=== PATIENT | female | born 1995 | race Hispanic/Latino ===

== ENCOUNTER 2016-11-26 11:02 | Emergency (ER) | payer OTHER ==
--- NOTE | 2016-11-26 12:03 | REP ---
OBSTETRIC SONOGRAPHY: HISTORY: Abdominal pain. FINDINGS: Transabdominal scanning demonstrates a viable single intrauterine gestation in a variable lie. motion is observed and heart rate is recorded at 149 beats per minute. An anterior placenta is seen without evidence of abruption or previa. Amniotic fluid is subjectively normal. Closed cervical length is 3.1 cm measured transabdominally. No extrauterine abnormality is observed. It is too early for anatomic survey. No gross anomaly is seen. Biometry Chart: BPD 2.5 cm = 14 weeks 1 day HC 9.5 cm = 14 weeks 3 days AC 7.5 cm = 14 weeks 0 days FL 0.9 cm = 12 weeks 6 days HC/AC ratio normal 1.28. Cephalic index normal 0.70. Estimated weight 77 grams, 0 pounds 2 ounces, 40th percentile for 13 weeks 3 days. IMPRESSION: Viable single intrauterine gestation at 13 weeks 6 days by today's sonographic criteria. ROCIO by today's sonography May 28, 2017. No complication is identified. Signed by Crow Cullen MD 11/26/2016 02:58 P
--- NOTE | 2016-11-26 12:34 | EDDOCDS ---
Physician Documentation [facility] Name: Sera Altman Age: 20 yrs Sex: Female : 1995 Arrival Date: 11/26/2016 Time: 11:02 Bed PR Private MD: Aramis [facility] [place] Disposition: 11/26/16 12:14 Discharged to Home/Self Care. Impression: Abdominal and pelvic pain, Other specified related conditions, first trimester. - Condition is Stable. - Discharge Instructions: Abdominal Pain During . - Medication Reconciliation form. - Follow up: Arpan Call, OB; When: Call to arrange an appointment; Reason: Recheck today's complaints, Continuance of care. - Problem is an ongoing problem. - Symptoms are unchanged. Historical: - Allergies: Amoxicillin (Hives); peanuts (Hives); - Home Meds: 1. geneva-sequel daily (Last dose: 11/26/2016 07:00) 2. Vitamin Oral tab 1 tab once daily (Last dose: 11/26/2016 07:00) - PMHx: low iron; - Social history: Smoking status: Patient states was never smoker of tobacco. No barriers to communication noted, The patient speaks fluent Vietnamese. - Family history: Not pertinent. - : The pt / caregiver states he / she is not on anticoagulants. Home medication list is obtained from the patient. - Exposure Risk Screening:: None identified. SOLUTIONS MARKET CONSULTANT: 11/26 11:13 1, Full Term 0, Premature 0, 0, Living 0, LMP 08/24/2016, kpj Verified, EDC 05/31/2017, Gestational age from LMP: 13 weeks 3 days Vital Signs: 11:04 BP 159 / 67; Pulse 101; Resp 18; Temp 98.9; Pulse Ox 99% ; Weight 52.16 kg / 114.99 elp lbs; Height 5 ft. 0 in. (152.40 cm); Pain 0/10; 12:28 BP 112 / 64; Pulse 86; Resp 16; Temp 97.0(O); Pulse Ox 100% on R/A; Pain 2/10; kpj 11:04 Body Mass Index 22.46 (52.16 kg, 152.40 cm) elp MDM: 11:20 UA Ordered. EDMS 11:20 US 1st trimester Ordered. EDMS 11:28 Financial registration complete. lg 11:35 [facility] Payment Agreement was scanned into [employer] and attached to record. lg 11:45 DUPLEX SCAN LIMITED (DOPPLER) Ordered. EDMS 12:06 UA Reviewed. cc10 12:08 Urine Culture Ordered. EDMS Signatures: Dispatcher [employer] EDMS Antonia Kennedy RN RN Neha Cary, Mark Reg lg Fredi Doe, JUAN C PARick cc10 The chart was reviewed and I authenticate all verbal orders and agree with the evaluation and treatment provided.Attachments: 11:35 [facility] Payment Agreement lg MTDD
--- NOTE | 2016-11-26 12:34 | EDDOCDS ---
Nurse's Notes [facility] Name: Sera Altman Age: 20 yrs Sex: Female : 1995 Arrival Date: 11/26/2016 Time: 11:02 Bed PR1 / 25 Private MD: SARAH Self Diagnosis: Abdominal and pelvic pain;Other specified related conditions, first trimester Presentation: 11/26 11:10 Presenting complaint: Patient states: 13 weeks lower abdominal cramping, [facility] denies vaginal bleeding. Risk factors: the patient reports no vaginal bleeding. Adult Sepsis Screening: The patient does not have new or worsening altered mentation. Patient's respiratory rate is less than 22. Systolic blood pressure is greater than 100. Patient has a qSOFA score of 0- Negative Sepsis Screen. Suicide/Homicide risk assessment- the patient denies having any suicidal and/or homicidal ideations and does not present with any other emotional, behavioral or mental health complaints. Status: The patient is a dependent. Transition of care: patient was not received from another setting of care. 11:10 Acuity: ISIS Level 3 [facility] 11:10 Method Of Arrival: Walkin/Carried/Asstd [facility] Triage Assessment: 11:13 General: Appears in no apparent distress, Behavior is appropriate for age, pleasant. [facility] Pain: Location: right lower quadrant Pain currently is 3 out of 10 on a pain scale. Quality of pain is described as sharp. Pt Declines HIV testing. Neurological: Level of Consciousness is awake, alert, Oriented to person, place, time. Respiratory: Airway is patent Respiratory effort is even, unlabored. GI: Reports lower abdominal pain. : Reports pain in right lower quadrant(s) Pain is 3 out of 10 on a pain scale. Denies vaginal bleeding. Derm: Skin is pink, warm & dry. 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 geneva-sequel daily (Last dose: 11/26/2016 07:00) 2. Vitamin Oral tab 1 tab once daily (Last dose: 11/26/2016 07:00) - PMHx: low iron; - Social history: Smoking status: Patient states was never smoker of tobacco. No barriers to communication noted, The patient speaks fluent Thai. - Family history: Not pertinent. - : The pt / caregiver states he / she is not on anticoagulants. Home medication list is obtained from the patient. - Exposure Risk Screening:: None identified. Screenin:28 Screening information is obtained from the patient. Fall risk: No risks identified. kpj Assistance ADL's: requires no assistance with activities of daily living. Abuse/DV Screen: The patient / caregiver reports he/she is: not in a situation that causes fear, pain or injury. Nutritional screening: No deficits noted. Advance Directives: Currently, there is no health care proxy. There is no active DNR order. There is no living will. There is no Power of Electric Sign Wirer. Advance directive information has not previously been placed in an [facility] medical record. Further advance directive information is declined. home support is adequate. Assessment: 12:28 General: Appears in no apparent distress, comfortable, well nourished, well groomed, [facility] Behavior is appropriate for age, pleasant. Pain: Location: right lower quadrant Pain currently is 2 out of 10 on a pain scale. Neurological: Level of Consciousness is awake, alert, Oriented to person, place, time. Respiratory: Airway is patent Respiratory effort is even, unlabored, Respiratory pattern is regular, symmetrical. GI: Abdomen is non- distended Bowel sounds present X 4 quads. Abd is soft X 4 quads Abd is tender to palpation in right lower quadrant Denies nausea, vomiting. : Reports pain in right lower quadrant(s) Pain is 2 out of 10 on a pain scale. Denies vaginal bleeding. Derm: Skin is pink, warm & dry. Vital Signs: 11:04 BP 159 / 67; Pulse 101; Resp 18; Temp 98.9; Pulse Ox 99% ; Weight 52.16 kg; Height 5 elp ft. 0 in. (152.40 cm); Pain 0/10; 12:28 BP 112 / 64; Pulse 86; Resp 16; Temp 97.0(O); Pulse Ox 100% on R/A; Pain 2/10; kpj 11:04 Body Mass Index 22.46 (52.16 kg, 152.40 cm) elp Vitals: 11:04 Log In Time: November 26, 2016 at 11:02. [facility] ED Course: 11:04 Patient visited by She Perales PCA. elp 11:04 Aramis [facility] is Private Physician. elp 11:04 Patient moved to Waiting elp 11:05 Patient visited by She Perales PCA. elp 11:06 Patient moved to Pre RCE elp 11:08 Fredi Doe PA-C is [facility]. cc10 11:08 Anabelle Coker MD is Attending Physician. cc10 11:12 Triage Initiated kpj 11:15 Patient visited by Fredi Doe PA-C. cc10 11:15 Patient visited by Fredi Doe PA-C. cc10 11:15 Patient moved to Triage 1 kp 11:23 Patient moved to TR1 [facility] 11:25 Patient visited by Gayle Silva PCA. rs6 11:25 Diet: Patient given water. Tolerated well. per approval from DIONI Doe. rs6 11:27 Patient moved to Ultrasound am10 11:34 Patient name changed from Sera\S\\S\Altman\S\ to Sera\S\ \S\Altman. EDMS 11:35 [facility] Payment Agreement was scanned into [employer] and attached to record. lg 11:44 UA Sent. rs6 11:47 Patient moved to TR1 am10 11:50 Patient visited by Gayle Silva PCA. rs6 11:50 Urine collected. Clean catch specimen. Urine specimen sent to lab. rs6 12:07 US 1st trimester Returned. EDMS 12:09 Patient moved to PR rs6 12:09 Urine Culture Sent. rs6 12:13 [place], OB is Referral Physician. cc10 12:28 No apparent distress. kpj 12:28 The patient / caregiver is instructed regarding the plan of care and ED course. Patient kpj has correct armband on for positive identification. 12:28 No IV's were initiated during this patient's visit. No procedures done that require kpj assistance. Order Results: Lab Order: UA; SPEC'M 11/26/16 11:44 Test: APPEARANCE, URINE; Value: CLOUDY; Range: CLEAR; Abnormal: Above high normal; Status: F Test: COLOR, URINE; Value: YELLOW; Range: YELLOW; Status: F Test: PH,URINE; Value: 8.0; Range: 5.0-9.0; Units: UNITS; Status: F Test: SPECIFIC GRAVITY URINE AUTO; Value: 1.016; Range: 1.002-1.035; Status: F Test: PROTEIN, URINE AUTO; Value: NEGATIVE; Range: NEGATIVE; Units: mg/dL; Status: F Test: GLUCOSE, URINE (UA) AUTO; Value: NEGATIVE; Range: NEGATIVE; Units: mg/dL; Status: F Test: KETONE, URINE AUTO; Value: NEGATIVE; Range: NEGATIVE; Units: mg/dL; Status: F Test: UROBILINOGEN, URINE AUTO; Value: 2.0; Range: 0.0-2.0; Abnormal: Above high normal; Units: mg/dL; Status: F Test: BILIRUBIN, URINE AUTO; Value: NEGATIVE; Range: NEGATIVE; Status: F Test: NITRITE, URINE AUTO; Value: NEGATIVE; Range: NEGATIVE; Status: F Test: LEUKOCYTE ESTERASE, URINE AUTO; Value: 1+; Range: NEGATIVE; Abnormal: Above high normal; Status: F Test: BLOOD, URINE BLOOD; Value: NEGATIVE; Range: NEGATIVE; Status: F Test: WBC, URINE AUTO; Value: 4; Range: 0-3; Abnormal: Above high normal; Units: /HPF; Status: F Test: RBC, URINE AUTO; Value: 3; Range: 0-3; Units: /HPF; Status: F Test: BACTERIA, URINE AUTO; Value: 1+; Range: NEGATIVE; Abnormal: Above high normal; Status: F Test: SQUAMOUS EPITHELIAL CELL UR AU; Value: 2; Range: 0-6; Units: /HPF; Status: F Test: MUCUS, URINE; Value: SMALL; Range: NEGATIVE; Status: F Test: HYALINE CAST, URINE AUTO; Value: 0; Range: 0-1; Units: /LPF; Status: F Test: AMORPHOUS SEDIMENT; Value: SMALL; Range: NEGATIVE; Abnormal: Above high normal; Status: F Radiology Order: US 1st trimester Test: US 1st trimester REASON FOR EXAMINATION: Abdomen Pain; OBSTETRIC SONOGRAPHY:; ; HISTORY: Abdominal pain.; ; FINDINGS: Transabdominal scanning demonstrates a viable single intrauterine; gestation in a variable lie. motion is observed and heart rate is; recorded at 149 beats per minute. An anterior placenta is seen without evidence; of abruption or previa. Amniotic fluid is subjectively normal. Closed cervical; length is 3.1 cm measured transabdominally. No extrauterine abnormality is; observed. It is too early for anatomic survey. No gross anomaly is; seen.; ; Biometry Chart:; BPD 2.5 cm = 14 weeks 1 day; HC 9.5 cm = 14 weeks 3 days; AC 7.5 cm = 14 weeks 0 days; FL 0.9 cm = 12 weeks 6 days; HC/AC ratio normal 1.28.; ; Cephalic index normal 0.70.; Estimated weight 77 grams, 0 pounds 2 ounces, 40th percentile for 13 weeks; 3 days.; ; IMPRESSION:; Viable single intrauterine gestation at 13 weeks 6 days by today's sonographic; criteria. ROCIO by today's sonography May 28, 2017. No complication is; identified.; ; ; ; ; Unreviewed; Outcome: 12:14 Discharge ordered by Provider. cc10 12:28 Discharge Assessment: Patient awake, alert and oriented x 3. No cognitive and/or [facility] functional deficits noted. Patient verbalized understanding of disposition instructions. patient administered narcotics - no. The following High Risk Discharge criteria are identified: None. Discharged to home ambulatory, with significant other. Condition: stable. Discharge instructions given to patient, Instructed on discharge instructions, follow up and referral plans. Demonstrated understanding of instructions, Pt was receptive of discharge instructions/ teaching. Ultrasound Study completed. Property sent home with patient. 12:33 Patient left the ED. [facility] Signatures: Dispatcher [employer] EDAntonia Anglin RN RN [facility] Neha Moralez, Reg Reg Sarah Smith am10 Roya Grissom RN RN [facility] She Perales, CARE PROGRAM DIRECTOR CARE PROGRAM DIRECTOR elp Fredi Doe, PAYesiC PAYesiC cc10 Gayle Silva, CARE PROGRAM DIRECTOR CARE PROGRAM DIRECTOR rs6 MTDD
--- NOTE | 2016-11-28 13:34 | EDDOCDS ---
Nurse's Notes [facility] Name: Sera Altman Age: 20 yrs Sex: Female : 1995 Arrival Date: 11/26/2016 Time: 11:02 Bed PR1 / 25 Private MD: SARAH Self Diagnosis: Abdominal and pelvic pain;Other specified related conditions, first trimester Presentation: 11/26 11:10 Presenting complaint: Patient states: 13 weeks lower abdominal cramping, [facility] denies vaginal bleeding. Risk factors: the patient reports no vaginal bleeding. Adult Sepsis Screening: The patient does not have new or worsening altered mentation. Patient's respiratory rate is less than 22. Systolic blood pressure is greater than 100. Patient has a qSOFA score of 0- Negative Sepsis Screen. Suicide/Homicide risk assessment- the patient denies having any suicidal and/or homicidal ideations and does not present with any other emotional, behavioral or mental health complaints. Status: The patient is a dependent. Transition of care: patient was not received from another setting of care. 11:10 Acuity: ISIS Level 3 [facility] 11:10 Method Of Arrival: Walkin/Carried/Asstd [facility] Triage Assessment: 11:13 General: Appears in no apparent distress, Behavior is appropriate for age, pleasant. [facility] Pain: Location: right lower quadrant Pain currently is 3 out of 10 on a pain scale. Quality of pain is described as sharp. Pt Declines HIV testing. Neurological: Level of Consciousness is awake, alert, Oriented to person, place, time. Respiratory: Airway is patent Respiratory effort is even, unlabored. GI: Reports lower abdominal pain. : Reports pain in right lower quadrant(s) Pain is 3 out of 10 on a pain scale. Denies vaginal bleeding. Derm: Skin is pink, warm & dry. LINE TENDER: 11:13 1, Full Term 0, Premature 0, 0, Living 0, LMP 08/24/2016, j Verified, EDC 05/31/2017, Gestational age from LMP: 13 weeks 3 days Historical: - Allergies: Amoxicillin (Hives); peanuts (Hives); - Home Meds: 1. geneva-sequel daily (Last dose: 11/26/2016 07:00) 2. Vitamin Oral tab 1 tab once daily (Last dose: 11/26/2016 07:00) - PMHx: low iron; - Social history: Smoking status: Patient states was never smoker of tobacco. No barriers to communication noted, The patient speaks fluent Italian. - Family history: Not pertinent. - : The pt / caregiver states he / she is not on anticoagulants. Home medication list is obtained from the patient. - Exposure Risk Screening:: None identified. Screenin:28 Screening information is obtained from the patient. Fall risk: No risks identified. kpj Assistance ADL's: requires no assistance with activities of daily living. Abuse/DV Screen: The patient / caregiver reports he/she is: not in a situation that causes fear, pain or injury. Nutritional screening: No deficits noted. Advance Directives: Currently, there is no health care proxy. There is no active DNR order. There is no living will. There is no Power of Conveyor Belt Installer. Advance directive information has not previously been placed in an [facility] medical record. Further advance directive information is declined. home support is adequate. Assessment: 12:28 General: Appears in no apparent distress, comfortable, well nourished, well groomed, [facility] Behavior is appropriate for age, pleasant. Pain: Location: right lower quadrant Pain currently is 2 out of 10 on a pain scale. Neurological: Level of Consciousness is awake, alert, Oriented to person, place, time. Respiratory: Airway is patent Respiratory effort is even, unlabored, Respiratory pattern is regular, symmetrical. GI: Abdomen is non- distended Bowel sounds present X 4 quads. Abd is soft X 4 quads Abd is tender to palpation in right lower quadrant Denies nausea, vomiting. : Reports pain in right lower quadrant(s) Pain is 2 out of 10 on a pain scale. Denies vaginal bleeding. Derm: Skin is pink, warm & dry. Vital Signs: 11:04 BP 159 / 67; Pulse 101; Resp 18; Temp 98.9; Pulse Ox 99% ; Weight 52.16 kg; Height 5 elp ft. 0 in. (152.40 cm); Pain 0/10; 12:28 BP 112 / 64; Pulse 86; Resp 16; Temp 97.0(O); Pulse Ox 100% on R/A; Pain 2/10; kpj 11:04 Body Mass Index 22.46 (52.16 kg, 152.40 cm) elp Vitals: 11:04 Log In Time: November 26, 2016 at 11:02. [facility] ED Course: 11:04 Patient visited by She Perales PCA. elp 11:04 Aramis [facility] [place] Private Physician. elp 11:04 Patient moved to Waiting elp 11:05 Patient visited by She Perales PCA. elp 11:06 Patient moved to Pre RCE elp 11:08 Fred[facility] cc10 11:08 Anabelle Coker MD is Attending Physician. cc10 11:12 Triage Initiated kpj 11:15 Patient visited by Fredi Doe PA-C. cc10 11:15 Patient visited by Fredi Doe PA-C. cc10 11:15 Patient moved to Triage 1 kp 11:23 Patient moved to TR1 [facility] 11:25 Patient visited by Gayle Silva PCA. rs6 11:25 Diet: Patient given water. Tolerated well. per approval from DIONI Doe. rs6 11:27 Patient moved to Ultrasound am10 11:34 Patient name changed from Sera\S\\S\Altman\S\ to Sera\S\ \S\Altman. EDMS 11:35 [facility] Payment Agreement was scanned into [employer] and attached to record. lg 11:44 UA Sent. rs6 11:47 Patient moved to TR1 am10 11:50 Patient visited by Gayle Silva PCA. rs6 11:50 Urine collected. Clean catch specimen. Urine specimen sent to lab. rs6 12:07 US 1st trimester Returned. EDMS 12:09 Patient moved to PR 25 rs6 12:09 Urine Culture Sent. rs6 12:13 [place], OB is Referral Physician. cc10 12:28 No apparent distress. kpj 12:28 The patient / caregiver is instructed regarding the plan of care and ED course. Patient kpj has correct armband on for positive identification. 12:28 No IV's were initiated during this patient's visit. No procedures done that require kpj assistance. 14:28 T-Sheet-- Draft Copy was scanned into [employer] and attached to record. gb Order Results: Lab Order: UA; SPEC'M 11/26/16 11:44 Test: APPEARANCE, URINE; Value: CLOUDY; Range: CLEAR; Abnormal: Above high normal; Status: F Test: COLOR, URINE; Value: YELLOW; Range: YELLOW; Status: F Test: PH,URINE; Value: 8.0; Range: 5.0-9.0; Units: UNITS; Status: F Test: SPECIFIC GRAVITY URINE AUTO; Value: 1.016; Range: 1.002-1.035; Status: F Test: PROTEIN, URINE AUTO; Value: NEGATIVE; Range: NEGATIVE; Units: mg/dL; Status: F Test: GLUCOSE, URINE (UA) AUTO; Value: NEGATIVE; Range: NEGATIVE; Units: mg/dL; Status: F Test: KETONE, URINE AUTO; Value: NEGATIVE; Range: NEGATIVE; Units: mg/dL; Status: F Test: UROBILINOGEN, URINE AUTO; Value: 2.0; Range: 0.0-2.0; Abnormal: Above high normal; Units: mg/dL; Status: F Test: BILIRUBIN, URINE AUTO; Value: NEGATIVE; Range: NEGATIVE; Status: F Test: NITRITE, URINE AUTO; Value: NEGATIVE; Range: NEGATIVE; Status: F Test: LEUKOCYTE ESTERASE, URINE AUTO; Value: 1+; Range: NEGATIVE; Abnormal: Above high normal; Status: F Test: BLOOD, URINE BLOOD; Value: NEGATIVE; Range: NEGATIVE; Status: F Test: WBC, URINE AUTO; Value: 4; Range: 0-3; Abnormal: Above high normal; Units: /HPF; Status: F Test: RBC, URINE AUTO; Value: 3; Range: 0-3; Units: /HPF; Status: F Test: BACTERIA, URINE AUTO; Value: 1+; Range: NEGATIVE; Abnormal: Above high normal; Status: F Test: SQUAMOUS EPITHELIAL CELL UR AU; Value: 2; Range: 0-6; Units: /HPF; Status: F Test: MUCUS, URINE; Value: SMALL; Range: NEGATIVE; Status: F Test: HYALINE CAST, URINE AUTO; Value: 0; Range: 0-1; Units: /LPF; Status: F Test: AMORPHOUS SEDIMENT; Value: SMALL; Range: NEGATIVE; Abnormal: Above high normal; Status: F Lab Order: Urine Culture; SPEC'M 11/26/16 11:44 Test: URINE CULTURE; Value: <EXTERNAL COMMENT eCWMed> FULL REPORT IN LAB NOTES (eCW and Medent).; Status: F Test: URINE CULTURE; Value: URINE CULTURE RESULT NO GROWTH; Status: F Radiology Order: US 1st trimester Test: US 1st trimester REASON FOR EXAMINATION: Abdomen Pain; OBSTETRIC SONOGRAPHY:; ; HISTORY: Abdominal pain.; ; FINDINGS: Transabdominal scanning demonstrates a viable single intrauterine; gestation in a variable lie. motion is observed and heart rate is; recorded at 149 beats per minute. An anterior placenta is seen without evidence; of abruption or previa. Amniotic fluid is subjectively normal. Closed cervical; length is 3.1 cm measured transabdominally. No extrauterine abnormality is; observed. It is too early for anatomic survey. No gross anomaly is; seen.; ; Biometry Chart:; ; BPD 2.5 cm = 14 weeks 1 day; ; HC 9.5 cm = 14 weeks 3 days; ; AC 7.5 cm = 14 weeks 0 days; ; FL 0.9 cm = 12 weeks 6 days; ; HC/AC ratio normal 1.28.; ; Cephalic index normal 0.70.; ; Estimated weight 77 grams, 0 pounds 2 ounces, 40th percentile for 13 weeks; 3 days.; ; IMPRESSION: Viable single intrauterine gestation at 13 weeks 6 days by today's; sonographic criteria. ROCIO by today's sonography May 28, 2017. No complication; is identified.; ; ; Signed by; Crow Cullen MD 11/26/2016 02:58 P; Outcome: 12:14 Discharge ordered by Provider. cc10 12:28 Discharge Assessment: Patient awake, alert and oriented x 3. No cognitive and/or j functional deficits noted. Patient verbalized understanding of disposition instructions. patient administered narcotics - no. The following High Risk Discharge criteria are identified: None. Discharged to home ambulatory, with significant other. Condition: stable. Discharge instructions given to patient, Instructed on discharge instructions, follow up and referral plans. Demonstrated understanding of instructions, Pt was receptive of discharge instructions/ teaching. Ultrasound Study completed. Property sent home with patient. 12:33 Patient left the ED. [facility] Signatures: Dispatcher MedHoAntonia Byers RN RN [facility] Kimber Oh, Reg Reg gb Neha Moralez, Reg Reg lg Sarah Madsen am10 Ryoa Grissom,RN RN cjh Diaz, She, CHANNEL PROCESS PLANT OPERATOR CHANNEL PROCESS PLANT OPERATOR elp Fredi Doe, PA-C PA-C cc10 Ricardo, Gayle, CHANNEL PROCESS PLANT OPERATOR CHANNEL PROCESS PLANT OPERATOR rs6 Chart Complete MTDD
--- NOTE | 2016-11-28 13:34 | EDDOCDS ---
Physician Documentation [facility] Name: Sera Altman Age: 20 yrs Sex: Female : 1995 Arrival Date: 11/26/2016 Time: 11:02 Bed PR Private MD: Aramis [facility] [place] Disposition: 11/26/16 12:14 Discharged to Home/Self Care. Impression: Abdominal and pelvic pain, Other specified related conditions, first trimester. - Condition is Stable. - Discharge Instructions: Abdominal Pain During . - Medication Reconciliation form. - Follow up: Arpan Call, OB; When: Call to arrange an appointment; Reason: Recheck today's complaints, Continuance of care. - Problem is an ongoing problem. - Symptoms are unchanged. Historical: - Allergies: Amoxicillin (Hives); peanuts (Hives); - Home Meds: 1. geneva-sequel daily (Last dose: 11/26/2016 07:00) 2. Vitamin Oral tab 1 tab once daily (Last dose: 11/26/2016 07:00) - PMHx: low iron; - Social history: Smoking status: Patient states was never smoker of tobacco. No barriers to communication noted, The patient speaks fluent Syriac. - Family history: Not pertinent. - : The pt / caregiver states he / she is not on anticoagulants. Home medication list is obtained from the patient. - Exposure Risk Screening:: None identified. OPERATIONS EXPERT: 11/26 11:13 1, Full Term 0, Premature 0, 0, Living 0, LMP 08/24/2016, kpj Verified, EDC 05/31/2017, Gestational age from LMP: 13 weeks 3 days Vital Signs: 11:04 BP 159 / 67; Pulse 101; Resp 18; Temp 98.9; Pulse Ox 99% ; Weight 52.16 kg / 114.99 elp lbs; Height 5 ft. 0 in. (152.40 cm); Pain 0/10; 12:28 BP 112 / 64; Pulse 86; Resp 16; Temp 97.0(O); Pulse Ox 100% on R/A; Pain 2/10; kpj 11:04 Body Mass Index 22.46 (52.16 kg, 152.40 cm) elp MDM: 11:20 UA Ordered. EDMS 11:20 US 1st trimester Ordered. EDMS 11:28 Financial registration complete. lg 11:35 [facility] [place] Payment Agreement was scanned into [employer] and attached to record. lg 11:45 DUPLEX SCAN LIMITED (DOPPLER) Ordered. EDMS 12:06 UA Reviewed. cc10 12:08 Urine Culture Ordered. EDMS 14:28 T-Sheet-- Draft Copy was scanned into [employer] and attached to record. gb Signatures: Dispatcher [employer] EDMS Antonia Kennedy RN RN Kimber Reyes, Reg Reg gb Neha Moralez, Reg Reg lg Fredi Doe, PA-C PA-C cc10 The chart was reviewed and I authenticate all verbal orders and agree with the evaluation and treatment provided.Attachments: 11:35 [facility] [place] Payment Agreement lg 14:28 T-Sheet-- Draft Copy gb Chart Complete MTDD
--- NOTE | 2016-11-28 13:34 | EDDOCDS ---
Physician Documentation [facility] Name: Sera Altman Age: 20 yrs Sex: Female : 1995 Arrival Date: 11/26/2016 Time: 11:02 Bed PR Private MD: Aramis [facility] [place] Disposition: 11/26/16 12:14 Discharged to Home/Self Care. Impression: Abdominal and pelvic pain, Other specified related conditions, first trimester. - Condition is Stable. - Discharge Instructions: Abdominal Pain During . - Medication Reconciliation form. - Follow up: Arpan Call, OB; When: Call to arrange an appointment; Reason: Recheck today's complaints, Continuance of care. - Problem is an ongoing problem. - Symptoms are unchanged. Historical: - Allergies: Amoxicillin (Hives); peanuts (Hives); - Home Meds: 1. geneva-sequel daily (Last dose: 11/26/2016 07:00) 2. Vitamin Oral tab 1 tab once daily (Last dose: 11/26/2016 07:00) - PMHx: low iron; - Social history: Smoking status: Patient states was never smoker of tobacco. No barriers to communication noted, The patient speaks fluent Uzbek. - Family history: Not pertinent. - : The pt / caregiver states he / she is not on anticoagulants. Home medication list is obtained from the patient. - Exposure Risk Screening:: None identified. APPLIED PSYCHOLOGY CHAIR: 11/26 11:13 1, Full Term 0, Premature 0, 0, Living 0, LMP 08/24/2016, kpj Verified, EDC 05/31/2017, Gestational age from LMP: 13 weeks 3 days Vital Signs: 11:04 BP 159 / 67; Pulse 101; Resp 18; Temp 98.9; Pulse Ox 99% ; Weight 52.16 kg / 114.99 elp lbs; Height 5 ft. 0 in. (152.40 cm); Pain 0/10; 12:28 BP 112 / 64; Pulse 86; Resp 16; Temp 97.0(O); Pulse Ox 100% on R/A; Pain 2/10; kpj 11:04 Body Mass Index 22.46 (52.16 kg, 152.40 cm) elp MDM: 11:20 UA Ordered. EDMS 11:20 US 1st trimester Ordered. EDMS 11:28 Financial registration complete. lg 11:35 [facility] [place] was scanned into [employer] and attached to record. lg 11:45 DUPLEX SCAN LIMITED (DOPPLER) Ordered. EDMS 12:06 UA Reviewed. cc10 12:08 Urine Culture Ordered. EDMS 14:28 T-Sheet-- Draft Copy was scanned into [employer] and attached to record. gb Signatures: Dispatcher [employer] EDMS Antonia Kennedy RN RN Kimber Reyes, Reg Reg gb Neha Moralez, Reg Reg lg Fredi Doe, PA-C PA-C cc10 The chart was reviewed and I authenticate all verbal orders and agree with the evaluation and treatment provided.Attachments: 11:35 [facility] [place] Agreement lg 14:28 T-Sheet-- Draft Copy gb Chart Complete MTDD
== END 2016-11-26 12:33 | disposition home or self-care (01) ==
LOC: M ED 11:02
DX: O26.891 Other specified pregnancy related conditions, first trimester (principal); R10.2 Pelvic and perineal pain; O99.281 Endocrine, nutritional and metabolic diseases complicating pregnancy, first trimester; E61.1 Iron deficiency; Z79.899 Other long term (current) drug therapy; Z88.1 Allergy status to other antibiotic agents; Z91.010 Allergy to peanuts; Z3A.13 13 weeks gestation of pregnancy

== ENCOUNTER 2017-04-05 20:25 | Emergency (ER) | payer OTHER ==
[~2017-04-05] VITALS: Ht 152.4 cm; Wt 64.4 kg
[2017-04-05 20:26] VITALS: BP 163/82
== END 2017-04-05 21:02 | disposition admitted as inpatient to this hospital (09) ==
LOC: M ED 20:59
DX: O26.899 Other specified pregnancy related conditions, unspecified trimester (principal); Z3A.00 Weeks of gestation of pregnancy not specified; Z88.0 Allergy status to penicillin; Z91.010 Allergy to peanuts

== ENCOUNTER 2017-04-05 20:43 | Outpatient (CLI) | payer OTHER, SELFPAY ==
[~2017-04-05] VITALS: Ht 152.4 cm; Wt 65.0 kg
[2017-04-05 20:46] VITALS: BP 138/63
[2017-04-05] MEDS ORDERED: SIMETHICONE 80 MG CHEW TAB PO PRN (21:00)
[2017-04-05] MEDS ORDERED: PERCOCET 5MG/325MG TAB PO ONE (21:15)
[2017-04-05] MEDS ORDERED: MORPHINE 10 MG/ML 1ML VIAL IM ONE (22:15)
[2017-04-05 22:23] VITALS: BP 106/59
== END 2017-04-05 22:35 | disposition home or self-care (01) ==
LOC: M LDO 20:43
PROVIDERS: ATTEND Obstetrics & Gynecology
DX: O26.893 Other specified pregnancy related conditions, third trimester (principal); R10.10 Upper abdominal pain, unspecified; R07.89 Other chest pain; O36.8130 Decreased fetal movements, third trimester, not applicable or unspecified; Z88.0 Allergy status to penicillin; Z91.018 Allergy to other foods; Z3A.31 31 weeks gestation of pregnancy

== ENCOUNTER 2020-09-16 23:28 | Emergency (ER) | payer OTHER ==
[~2020-09-16] VITALS: Ht 152.4 cm; Wt 57.5 kg
[2020-09-16 23:30] VITALS: BP 140/84
[2020-09-17] MEDS ORDERED: PROPARACAINE 0.5% OPHTH SOL 15ML OD ONE
[2020-09-17] MEDS ORDERED: FLUORESCEIN OPHTH 1 MG STRIP OD ONE
[2020-09-17] MEDS ORDERED: NORG1TAB33 (00:08)
[2020-09-17] MEDS ORDERED: VITA1CAP25 (00:08)
== END 2020-09-17 00:25 | disposition home or self-care (01) ==
LOC: M ED 23:28
DX: T15.01XA Foreign body in cornea, right eye, initial encounter (principal); Y92.89 Other specified places as the place of occurrence of the external cause; Z79.3 Long term (current) use of hormonal contraceptives

== ENCOUNTER 2020-10-06 09:51 | Emergency (ER) | payer OTHER ==
[~2020-10-06] VITALS: Ht 154.9 cm; Wt 56.4 kg
[~2020-10-06 09:51] MED LIST: NORG1TAB33; VITA1CAP25
[2020-10-06] MEDS ORDERED: FLUORESCEIN OPHTH 1 MG STRIP OD ONE (11:30)
[2020-10-06] MEDS ORDERED: PROPARACAINE 0.5% OPHTH SOL 15ML OD ONE (11:30)
[2020-10-06] MEDS ORDERED: OCUF0.25 OP (11:57)
[2020-10-06 12:06] VITALS: BP 116/78
== END 2020-10-06 12:20 | disposition home or self-care (01) ==
LOC: M ED 09:51
DX: H57.89 Other specified disorders of eye and adnexa (principal); Y77.11 Contact lens associated with adverse incidents; Z97.3 Presence of spectacles and contact lenses; Z88.0 Allergy status to penicillin

== ENCOUNTER → 2021-09-27 | Outpatient (REF) | payer OTHER ==
[~2021-09-27] MED LIST changes: +OCUF0.25 OP
== END ==
LOC: M LAB REF 21:28
PROVIDERS: ATTEND Physician Assistant Medical
DX: J02.9 Acute pharyngitis, unspecified (principal)